=== PATIENT | female | born 1970 | race Caucasian/White ===

== ENCOUNTER 2017-06-07 12:03 | Day surgery (SDC) | payer SELFPAY, OTHER ==
[~2017-06-07 12:03] MED LIST: Bupivacaine 0.25% 10 ML SDV INJECT ONE; Bupivacaine 0.25% 10 ML SDV ONE; Octyl 2-Cyanoacrylate 1 Tube ONE; Scopolamine 1.5 MG Transdermal Patch TRDERM PRN; ceFAZolin 2 GM in Premix Bag 1 BAG IV ONE
[2017-06-07] MEDS ORDERED: Acetaminophen 1,000 MG in Premix Bag 1 BAG IV SCH (12:30)
[2017-06-07] MEDS: Lactated Ringers 1,000 ML IV SCH ×2 (12:54→18:12)
[2017-06-07] MEDS ORDERED: Ondansetron 4 MG/2 ML SDV ONE (12:56)
[2017-06-07] MEDS ORDERED: Rocuronium 10 MG/ML 10 ML Syringe ONE (12:56)
[2017-06-07] MEDS ORDERED: Lidocaine 2% 5 ML SDV ONE (12:56)
[2017-06-07] MEDS ORDERED: Propofol 200 MG/20 ML SDV ONE (12:56)
[2017-06-07] MEDS ORDERED: HYDROmorphone 2 MG/ML Syringe ONE (12:57)
[2017-06-07] MEDS ORDERED: fentaNYL 100 MCG/2 ML SDV ONE (12:57)
[2017-06-07] MEDS ORDERED: Dexamethasone 4 MG/ML 5 ML MDV ONE (12:57)
[2017-06-07] MEDS ORDERED: Midazolam 1 MG/ML 2 ML SDV ONE ×2 (12:57→13:20)
[2017-06-07] MEDS ORDERED: diphenhydrAMINE 50 MG/ML SDV ONE (12:57)
[2017-06-07] MEDS ORDERED: Midazolam 1 MG/ML 2 ML SDV IVPUSH ONE (13:16)
--- NOTE | 2017-06-07 13:16 | PCM.PREANE ---
Preanesthetic Assessment - Anesthesia/Transfusion/Family Hx Anesthesia History: Prior Anesthesia Without Reaction Other Type of Anesthesia Reaction Comment: DENIES ANY PROBLEMS WITH ANESTHESIA Family History of Anesthesia Reaction: No Transfusion History: Prior Transfusion Without Reaction Intubation History: Unknown - Review of Systems General: No Symptoms Pulmonary: No Symptoms Cardiovascular: No Symptoms Gastrointestinal: No Symptoms Neurological: No Symptoms Other: Reports: None - Physical Assessment O2 Sat by Pulse Oximetry: 96 Respiratory Rate: 16 Vital Signs: Last Vital Signs Temp 36.8 C 06/07/17 12:40 Pulse 61 06/07/17 12:40 Resp 16 06/07/17 12:40 BP 120/78 06/07/17 12:40 Pulse Ox 96 06/07/17 12:40 Height: 1.7 m Weight: 86.636 kg ASA Class: 2 Mental Status: Alert & Oriented x3 Airway Class: Mallampati = 2 Dentition: Reports: Normal Dentition Thyro-Mental Finger Breadths: 3 Mouth Opening Finger Breadths: 2 ROM/Head Extension: Full Lungs: Clear to Auscultation, Normal Respiratory Effort Cardiovascular: Regular Rate, Regular Rhythm - Allergies Allergies/Adverse Reactions: Allergies Allergy/AdvReac Type Severity Reaction Status Date / Time bacitracin Allergy Blisters Verified 06/02/17 11:54 [From Triple Antibiotic] bacitracin zinc Allergy Blisters Verified 06/02/17 11:54 [From Triple Antibiotic] neomycin sulfate Allergy Blisters Verified 06/02/17 11:54 [From Triple Antibiotic] polymyxin B Allergy Blisters Verified 06/02/17 11:54 [From Triple Antibiotic] polymyxin B sulfate Allergy Blisters Verified 06/02/17 11:54 [From Triple Antibiotic] - Blood Blood Available: No - Anesthesia Plan Pre-Op Medication Ordered: None - Acknowledgements Anesthesia Type Planned: General Anesthesia Pt an Appropriate Candidate for the Planned Anesthesia: Yes Alternatives and Risks of Anesthesia Discussed w Pt/Guardian: Yes Pt/Guardian Understands and Agrees with Anesthesia Plan: Yes PreAnesthesia Questionnaire HEENT History: Reports: None Cardiovascular History: Reports: None, Other (See Below) (h/o HTN and high cholesterol before loosing weight post gastric by-pass) Respiratory History: Reports: None Gastrointestinal History: Reports: Other (See Below) (s/p bowel obstruction due to abdminal gauze left during oophorectomy. 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: Musculoskeletal History: Reports: Fracture Other Musculoskeletal History: right collarbone Neurological History: Reports: None Psychiatric History: Reports: Anxiety, Depression Endocrine/Metabolic History: Reports: Hypothyroidism Hematologic History: Reports: Blood Transfusion(s) Immunologic History: Reports: None Oncologic (Cancer) History: Reports: None Dermatologic History: Reports: None - Infectious Disease History Infectious Disease History: Reports: Influenza - Past Surgical History Head Surgeries/Procedures: Reports: None HEENT Surgical History: Reports: Oral Surgery, Tonsillectomy Other HEENT Surgeries/Procedures: has 2 dental implants Cardiovascular Surgical History: Reports: None Respiratory Surgical History: Reports: None GI Surgical History: Reports: Bariatric Procedure, Other (See Below) Other GI Surgeries/Procedures: gastric sleeve October 20, 2014, laparotomy with splenectomy for removal of surgical sponge Female Surgical History: Reports: Section, Hysterectomy, Salpingo- Oophorectomy Endocrine Surgical History: Reports: None Neurological Surgical History: Reports: None Musculoskeletal Surgical History: Reports: Carpal Tunnel, Other (See Below) Other Musculoskeletal Surgeries/Procedures:: bilateral carpal tunnel, tendon repair of left elbow Oncologic Surgical History: Reports: None Dermatological Surgical History: Reports: None - SUBSTANCE USE Smoking Status *Q: Former Smoker Tobacco Use Within Last Twelve Months: No Second Hand Smoke Exposure: No Days Per Week of Alcohol Use: 0 Number of Drinks Per Day: 0 Total Drinks Per Week: 0 Recreational Drug Use History: No - HOME MEDS Home Medications: Home Meds Multivitamin [Multivitamins] 1 tab PO DAILY 05/19/14 [History] Citalopram Hydrobromide [Celexa] 20 mg PO DAILY 08/23/15 [History] Estradiol [Vivelle-Dot] 0.1 mg TRDERM ASDIRECTED 08/23/15 [History] Levothyroxine 125 mcg PO ACBREAKFAST 08/23/15 [History] Biotin 1,000 mcg PO DAILY 10/02/15 [History] - CURRENT (IN HOUSE) MEDS Current Meds: Current Medications Hydrocodone Bitart/Acetaminophen ([place] 325-5 Mg) 2 tab PO Q4H PRN PRN Reason: Pain Acetaminophen 1,000 mg/ Premix 100 mls @ 400 mls/hr IV .ONETIME SUSHIL Last Admin: 06/07/17 13:02 Dose: 400 mls/hr Lactated Ringer's (Ringers, Lactated) 1,000 mls @ 125 mls/hr IV ASDIRECTED REPLACED BY [facility] Last Admin: 06/07/17 12:54 Dose: 125 mls/hr Scopolamine (Transderm-Scop) 1.5 mg TRDERM .ONCE PRN PRN Reason: Post Op Nausea Last Admin: 06/07/17 13:02 Dose: 1.5 mg Discontinued Medications Bupivacaine HCl (Sensorcaine-Mpf 0.25%) 10 ml INJECT ONETIME ONE Stop: 06/07/17 08:05 Bupivacaine HCl (Sensorcaine-Mpf 0.25%) Confirm Administered Dose 40 ml .ROUTE .STK-MED ONE Stop: 06/07/17 11:43 Dexamethasone (Dexamethasone) Confirm Administered Dose 20 mg .ROUTE .STK-MED ONE Stop: 06/07/17 12:58 Diphenhydramine HCl (Benadryl) Confirm Administered Dose 50 mg .ROUTE .STK-MED ONE Stop: 06/07/17 12:58 Fentanyl (Sublimaze) Confirm Administered Dose 100 mcg .ROUTE .STK-MED ONE Stop: 06/07/17 12:58 Hydromorphone HCl (Dilaudid) Confirm Administered Dose 2 mg .ROUTE .STK-MED ONE Stop: 06/07/17 12:58 Cefazolin Sodium/Dextrose 2 gm (/ Premix) 50 mls @ 100 mls/hr IV ONETIME ONE Stop: 06/07/17 08:33 Lidocaine (Xylocaine-Mpf 2%) Confirm Administered Dose 5 ml .ROUTE .STK-MED ONE Stop: 06/07/17 12:57 Midazolam HCl (Versed 1 Mg/Ml) Confirm Administered Dose 2 mg .ROUTE .STK-MED ONE Stop: 06/07/17 12:58 Octyl Cyanoacrylate (Dermabond Advance) Confirm Administered Dose 1 applic .ROUTE .STK-MED ONE Stop: 06/07/17 11:44 Ondansetron HCl (Zofran) Confirm Administered Dose 4 mg .ROUTE .STK-MED ONE Stop: 06/07/17 12:57 Propofol (Diprivan 20 Ml) Confirm Administered Dose 200 mg .ROUTE .STK-MED ONE Stop: 06/07/17 12:57 Rocuronium [place] (Zemuron) Confirm Administered Dose 100 mg .ROUTE .[facility] Stop: 06/07/17 12:57
[2017-06-07] MEDS ORDERED: ceFAZolin 1 GM Vial ONE ×2 (14:53→14:57)
[2017-06-07] MEDS ORDERED: Neostigmine Methylsulfate 1 MG/ML 5 ML Syringe ONE (15:55)
[2017-06-07] MEDS ORDERED: fentaNYL 100 MCG/2 ML SDV IVPUSH PRN (16:14)
[2017-06-07] MEDS ORDERED: Bupivacaine 0.25% 10 ML SDV ONE (17:19)
[2017-06-07] MEDS ORDERED: Ondansetron 4 MG Tab.DIS PO PRN (17:34)
[2017-06-07] MEDS ORDERED: diphenhydrAMINE 25 MG Cap PO PRN (17:34)
[2017-06-07] MEDS ORDERED: Ondansetron 4 MG/2 ML SDV IVPUSH PRN (17:34)
[2017-06-07] MEDS ORDERED: Ibuprofen 400 MG Tab PO PRN (17:34)
--- NOTE | 2017-06-07 17:37 | PCM.OPNOTE ---
- General Post-Op/Procedure Note Date of Surgery/Procedure: 06/07/17 Operative Procedure(s): abdonimoplasty Pre Op Diagnosis: excess abdominal skin Post-Op Diagnosis: Same Anesthesia Technique: General ET Tube, Local Primary Surgeon: Ana Ashton Conference Manager: Kesha Crenshaw Complications: None Condition: Good
--- NOTE | 2017-06-07 17:42 | PCM.POSTAN ---
POST ANESTHESIA ASSESSMENT - MENTAL STATUS Mental Status: Alert, Oriented - VITAL SIGNS Pulse Rate: 117 SaO2: 95 Resp Rate: 16 Blood Pressure: 131/75 - RESPIRATORY Respiratory Status: Respiratory Rate WNL, Airway Patent, O2 Saturation Stable - CARDIOVASCULAR CV Status: Pulse Rate WNL, Blood Pressure Stable, Other (hr in 110's bp stable no c/o pain) - GASTROINTESTINAL GI Status: No Symptoms - PAIN Pain Score: 2 - POST OP HYDRATION Hydration Status: Adequate & Stable (iv fluids)
[2017-06-07] MEDS: Cephalexin 500 MG Cap PO SCH (18:20)
[2017-06-07] MEDS: Acetaminophen/HYDROcodone 325-5 MG Tab PO PRN ×2 (18:20→22:50)
[2017-06-08] MEDS: Lactated Ringers 1,000 ML IV SCH (00:08)
[2017-06-08] MEDS: Cephalexin 500 MG Cap PO SCH ×4 (00:24→17:29)
[2017-06-08] MEDS: Acetaminophen/HYDROcodone 325-5 MG Tab PO PRN ×3 (05:54→17:32)
[2017-06-08] MEDS ORDERED: Sodium Chloride 0.9% 2.5 ML Syringe FLUSH PRN (08:01)
[2017-06-08] MEDS ORDERED: Sodium Chloride 0.9% 10 ML Syringe FLUSH PRN (08:01)
--- NOTE | 2017-06-08 08:48 | PCM.SN ---
- Free Text/Narrative Note: Feeling well POD1 am. Minor soreness but overall doing great. would like to go home later today. 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 Pain controlled and ambulating. Will saline lock IV. TH
--- NOTE | 2017-06-08 13:54 | OR ---
SURGEON: JUDY BENDER MD DATE OF PROCEDURE: 06/07/2017 PREOPERATIVE DIAGNOSIS: Excess abdominal skin with scarring. POSTOPERATIVE DIAGNOSIS: Excess abdominal skin with scarring. PROCEDURE: Abdominoplasty. GENETICS NURSE: WASHINGTON Hernandez. ANESTHESIA: General ET tube with local. Indications for perinatal breastfeeding assistant is retraction and assistance with closure of the abdominal wound. INDICATIONS: Ms. Cowart is a 46-year-old female who was seen today in evaluation for lower abdominal excess skin. Risks and benefits of abdominoplasty were discussed with her and she was in agreement to proceed. Risks were including, but not limited to, bleeding, infection, damage to underlying or overlying structures, possible need for future interventions, and possible scarring. PROCEDURE IN DETAIL: After informed consent was obtained and placed on the chart, the patient was brought to the operating theater and laid in supine position. After adequate general anesthetic was obtained, the area was prepped and draped and a time-out was completed to confirm side and site. Attention was then paid to the lower abdominal transverse incision as marked just slightly above the umbilicus to the lower abdomen for skin excision. The lower incision was made 1st. Dissection was carried down to the abdominal wall and then elevated up to the umbilicus. The umbilicus was outlined and dissected free and left attached to the abdominal wall. Once adequately dissected here, dissection was then continued for the skin flap up to the xiphoid process and tapered laterally. Once adequately dissected, meticulous hemostasis was obtained and the area was copiously irrigated. Once adequately irrigated, attention was then paid to plication stitches in the midline using 0 Ethibond sutures to tighten the abdominal wall. Once this was completed, all the way down from the xiphoid process to the pubic bone, the pubic bone was then used to anchor the superior mons skin up to allow better contour. Once this was completed, the wounds again were irrigated and then the patient was sat up 30 degrees and skin flap was redraped. Once redraped, minor adjustments were made for the excision and attention was then paid to transection of the excess abdominal skin. Once this was completed, 2-0 PDS sutures were then used to plicate the abdominal wall to the superior skin flap all the way down just at the lateral rectus muscle. Once this was completed bilaterally, the skin flap was again redraped and stapled in place appropriately with midline markings reapproximated. Once they were stapled in place, deep 2-0 PDS STRATAFIX sutures were used to secure the fascia, 3-0 Monocryl STRATAFIX sutures for the dermis, and 4-0 Monocryl STRATAFIX sutures for the skin. The two size 7 VICK drains were placed prior to closure and sutured in place to the lateral aspect of the incision using 3-0 Prolene. Attention was then paid to isolation of the umbilicus at the marked position and dissection was carried through the skin scar and subcutaneous tissues. The umbilicus was easily brought through the old vertical scar and sutured in place using deep 4-0 Monocryl sutures and Dermabond for the skin. The patient tolerated this well and this was dressed with Tegaderm. The lower incision was dressed with Steri-Strips, fluffs, tape, and an abdominal compression binder from [facility]. Once adequately dressed, the patient was transferred to PACU in stable condition. She tolerated this well and all counts and needles were correct at the end of the case and given the patient's previous issue checked 2 additional times. 0.25% Marcaine and Exparel were both used for anesthesia. FOLLOWUP INSTRUCTIONS: The patient will be maintained in the hospital overnight for observation, likely discharge tomorrow. PRIMARY SURGEON: SECONDARY SURGEON: REASON GENETICS NURSE WAS NECESSARY: ROLE OF GENETICS NURSE: DEYANIRA AUGUSTINE /[id number]
[2017-06-08 17:00] VITALS: BP 118/76
--- NOTE | 2017-06-08 17:06 | PCM.SN ---
- Free Text/Narrative Note: excellent progress and home today. All questions answered and d/c instructions provided.
== END 2017-06-08 17:40 | disposition home or self-care (01) ==
LOC: MW.SDS 12:03 → MW.MS 18:07 → MW.SDS 06-08 17:40
PROVIDERS: ATTEND Plastic Surgery
DX: Z41.1 Encounter for cosmetic surgery (principal); L98.7 Excessive and redundant skin and subcutaneous tissue; L90.5 Scar conditions and fibrosis of skin; F41.9 Anxiety disorder, unspecified; F32.9 Major depressive disorder, single episode, unspecified; E03.9 Hypothyroidism, unspecified; Z87.891 Personal history of nicotine dependence; Z79.899 Other long term (current) drug therapy; Z88.1 Allergy status to other antibiotic agents; Z98.84 Bariatric surgery status; Z90.81 Acquired absence of spleen; Z90.710 Acquired absence of both cervix and uterus; Z98.890 Other specified postprocedural states
CPT/HCPCS: 15830; 15847; A9270; J0690; J1100; J1170; J1200; J2250; J2405; J3010; J7120; 00802; J2704

== ENCOUNTER 2019-03-04 09:18 | Day surgery (SDC) | payer OTHER ==
[~2019-03-04 09:18] MED LIST changes: -Bupivacaine 0.25% 10 ML SDV INJECT ONE; -Bupivacaine 0.25% 10 ML SDV ONE; +Lactated Ringers 1,000 ML IV SCH; -Octyl 2-Cyanoacrylate 1 Tube ONE; -Scopolamine 1.5 MG Transdermal Patch TRDERM PRN
[2019-03-04] MEDS ORDERED: Lidocaine 1% 20 ML MDV ONE (09:46)
[2019-03-04] MEDS ORDERED: Bupivacaine 0.5% 30 ML SDV ONE (09:46)
[2019-03-04] MEDS ORDERED: fentaNYL 250 MCG/5 ML SDV ONE (09:51)
[2019-03-04] MEDS ORDERED: Lidocaine 2% 5 ML SDV ONE (09:51)
--- NOTE | 2019-03-04 09:51 | PCM.PREANE ---
Preanesthetic Assessment - Anesthesia/Transfusion/Family Hx Anesthesia History: Prior Anesthesia Without Reaction Other Type of Anesthesia Reaction Comment: DENIES ANY PROBLEMS WITH ANESTHESIA Family History of Anesthesia Reaction: No Transfusion History: Prior Transfusion Without Reaction Intubation History: Unknown - Review of Systems General: No Symptoms Pulmonary: No Symptoms Cardiovascular: No Symptoms Gastrointestinal: No Symptoms Neurological: No Symptoms Other: Reports: None ( ) - Physical Assessment Vital Signs: Last Vital Signs Temp 36.8 C 03/04/19 09:25 Pulse 71 03/04/19 09:25 Resp 16 03/04/19 09:25 BP 118/75 03/04/19 09:25 Pulse Ox 96 03/04/19 09:25 Height: 5 ft 6 in Weight: 97.976 kg ASA Class: 2 Mental Status: Alert & Oriented x3 Airway Class: Mallampati = 2 Dentition: Reports: Normal Dentition Thyro-Mental Finger Breadths: 3 Mouth Opening Finger Breadths: 2 (small mouth) ROM/Head Extension: Full Lungs: Clear to Auscultation, Normal Respiratory Effort Cardiovascular: Regular Rate, Regular Rhythm - Allergies Allergies/Adverse Reactions: Allergies Allergy/AdvReac Type Severity Reaction Status Date / Time bacitracin Allergy Blisters Verified 06/02/17 11:54 [From Triple Antibiotic] bacitracin zinc Allergy Blisters Verified 06/02/17 11:54 [From Triple Antibiotic] neomycin sulfate Allergy Blisters Verified 06/02/17 11:54 [From Triple Antibiotic] polymyxin B Allergy Blisters Verified 06/02/17 11:54 [From Triple Antibiotic] polymyxin B sulfate Allergy Blisters Verified 06/02/17 11:54 [From Triple Antibiotic] - Blood Blood Available: No - Anesthesia Plan Pre-Op Medication Ordered: None - Acknowledgements Anesthesia Type Planned: General Anesthesia Pt an Appropriate Candidate for the Planned Anesthesia: Yes Alternatives and Risks of Anesthesia Discussed w Pt/Guardian: Yes Pt/Guardian Understands and Agrees with Anesthesia Plan: Yes PreAnesthesia Questionnaire HEENT History: Reports: None Cardiovascular History: Reports: High Cholesterol Respiratory History: Reports: None Gastrointestinal History: Reports: None Genitourinary History: Reports: None 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: Musculoskeletal History: Reports: Fracture Other Musculoskeletal History: right collarbone Neurological History: Reports: None Psychiatric History: Reports: Anxiety, Depression Endocrine/Metabolic History: Reports: Hypothyroidism, Obesity/BMI 30+ Hematologic History: Reports: Blood Transfusion(s) Immunologic History: Reports: None Oncologic (Cancer) History: Reports: None Dermatologic History: Reports: None - Infectious Disease History Infectious Disease History: Reports: Influenza - Past Surgical History Head Surgeries/Procedures: Reports: None HEENT Surgical History: Reports: Oral Surgery, Tonsillectomy Other HEENT Surgeries/Procedures: has 2 dental implants Cardiovascular Surgical History: Reports: None Respiratory Surgical History: Reports: None GI Surgical History: Reports: Bariatric Procedure, Other (See Below) Other GI Surgeries/Procedures: gastric sleeve October 20, 2014, laparotomy with splenectomy for removal of surgical sponge Female Surgical History: Reports: Section, Hysterectomy, Salpingo- Oophorectomy Endocrine Surgical History: Reports: None Neurological Surgical History: Reports: None Musculoskeletal Surgical History: Reports: Carpal Tunnel, Other (See Below) Other Musculoskeletal Surgeries/Procedures:: bilateral carpal tunnel, tendon repair of left elbow Oncologic Surgical History: Reports: None Dermatological Surgical History: Reports: None - SUBSTANCE USE Smoking Status *Q: Former Smoker Tobacco Use Within Last Twelve Months: No Recreational Drug Use History: No - HOME MEDS Home Medications: Home Meds Multivitamin [Multivitamins] 1 tab PO DAILY 05/19/14 [History] Citalopram Hydrobromide [Celexa] 30 mg PO DAILY 08/23/15 [History] Estradiol [Vivelle-Dot] 0.1 mg TRDERM ASDIRECTED 08/23/15 [History] Levothyroxine 1.5 tab PO ACBREAKFAST 08/23/15 [History] Biotin 1,000 mcg PO DAILY 10/02/15 [History] LORazepam [Ativan] 1 tab PO ASDIRECTED PRN 02/27/19 [History] - CURRENT (IN HOUSE) MEDS Current Meds: Current Medications Lactated Ringer's (Ringers, Lactated) 1,000 mls @ 125 mls/hr IV ASDIRECTED SUSHIL Discontinued Medications Cefazolin Sodium/Dextrose 2 gm (/ Premix) 50 mls @ 100 mls/hr IV ONETIME ONE Stop: 03/04/19 06:29
[2019-03-04] MEDS ORDERED: Midazolam 1 MG/ML 2 ML SDV ONE (09:52)
[2019-03-04] MEDS ORDERED: Propofol 200 MG/20 ML SDV ONE (09:53)
[2019-03-04] MEDS ORDERED: Sodium Chloride 0.9% 20 ML ONE (11:53)
[2019-03-04] MEDS ORDERED: ceFAZolin 1 GM Vial ONE (11:53)
[2019-03-04] MEDS ORDERED: Ketorolac 30 MG/ML SDV ONE (12:03)
[2019-03-04] MEDS ORDERED: Ondansetron 4 MG/2 ML SDV ONE (12:03)
--- NOTE | 2019-03-04 13:33 | PN ---
PLANNED PROCEDURE: 1. Exostectomy, first metatarsophalangeal joint, left foot. 2. Exostectomy, first metatarsophalangeal joint, right foot. MEDICAL HISTORY: Preoperative clearance was performed by Dr. Tonio Mims. ALLERGIES: Triple Antibiotic ointment. No other known drug allergies. MEDICATIONS: 1. Celexa 20 mg tablet 1.5 tabs every day orally. 2. Lorazepam 0.5 mg 1 tab 3 times a day by oral route. 3. Synthroid 125 mcg tablet 1-1/2 tabs daily by oral route. 4. Vivelle-Dot 0.1 mg per 24-hour transdermal patch, apply 1 patch twice a week by transdermal route. 5. Acetonic supplement once a day, which contain several vitamins and supplements. Lab values were all unremarkable and within normal limits. Chest x-ray was unremarkable. No acute cardiopulmonary process. EKG was normal with sinus rhythm. The patient is cleared for surgery by Dr. Tonio Mims. All of the patient's questions have been asked and answered. No guarantees have been expressed or implied. Risks and benefits of surgery have been discussed with the patient. Risks including postoperative infection, prolonged healing, and inadequate relief of painful symptoms. ELSY / BRADLEYL /[id number] MTDWaylon
--- NOTE | 2019-03-04 14:30 | PCM.OPNOTE ---
- General Post-Op/Procedure Note Date of Surgery/Procedure: 03/04/19 Operative Procedure(s): 1. exostectomy first metatarsal phalangeal joint right foot. 1. exostectomy first metatarsal phalangeal joint left foot. 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 hallux rigidus and exostosis left first metatarsal phalangeal joint Post-Op Diagnosis: hallux rigidus and exostosis right first metatarsal phalangeal joint. hallux rigidus and exostosis left first metatarsal phalangeal joint Anesthesia Technique: General LMA Primary Surgeon: Jorge A Burrell Pathology: none Complications: none Condition: Good Free Text/Narrative:: materials: 3-0 vicryl, 4-0 vicryl, 4-0 Stratafix injectables: 8 ml 0.5% marcaine plain to right foot and 8 ml 0.5% marcaine plain to left foot
[2019-03-04] MEDS: fentaNYL 100 MCG/2 ML SDV IVPUSH PRN ×2 (14:33→14:46)
[2019-03-04] MEDS ORDERED: fentaNYL 100 MCG/2 ML SDV IVPUSH PRN (15:16)
--- NOTE | 2019-03-04 15:16 | PCM.POSTAN ---
POST ANESTHESIA ASSESSMENT - MENTAL STATUS Mental Status: Alert, Oriented - VITAL SIGNS Vital Signs: Last Vital Signs Temp 37 C 03/04/19 14:22 Pulse 104 H 03/04/19 14:57 Resp 12 03/04/19 14:57 BP 131/80 03/04/19 14:57 Pulse Ox 95 03/04/19 14:57 - RESPIRATORY Respiratory Status: Respiratory Rate WNL, Airway Patent, O2 Saturation Stable - CARDIOVASCULAR CV Status: Pulse Rate WNL, Blood Pressure Stable - GASTROINTESTINAL GI Status: No Symptoms - PAIN Pain Score: 4 - POST OP HYDRATION Hydration Status: Adequate & Stable - OBSERVATIONS Free Text/Narrative:: no anesthesia problems
[2019-03-04] MEDS ORDERED: Acetaminophen/HYDROcodone 325-5 MG Tab PO ONE (15:17)
[2019-03-04 16:00] VITALS: BP 120/77
--- NOTE | 2019-03-04 16:28 | PCM48HPAN ---
Post Anesthesia Note - EVALUATION WITHIN 48HRS OF ANESTHETIC Vital Signs in Normal Range: Yes Patient Participated in Evaluation: Yes Respiratory Function Stable: Yes Airway Patent: Yes Cardiovascular Function Stable: Yes Hydration Status Stable: Yes Pain Control Satisfactory: Yes Nausea and Vomiting Control Satisfactory: Yes Mental Status Recovered: Yes Vital Signs: Last Vital Signs Temp 37.2 C 03/04/19 15:05 Pulse 101 H 03/04/19 15:50 Resp 16 03/04/19 15:50 BP 120/77 03/04/19 15:50 Pulse Ox 95 03/04/19 15:50
--- NOTE | 2019-03-05 04:00 | OR ---
SURGEON: Jorge A Burrell DPM DATE OF PROCEDURE: 03/04/2019 PRIMARY SURGEON: Jorge A Burrell DPM. The patient is a 48-year-old female. PREOPERATIVE DIAGNOSIS: Exostosis, first metatarsophalangeal joint, left foot and exostosis, first metatarsophalangeal joint, right foot. POSTOPERATIVE DIAGNOSIS: Exostosis, first metatarsophalangeal joint, left foot and exostosis, first metatarsophalangeal joint, right foot. PROCEDURE: Exostectomy, first metatarsophalangeal joint, right foot and exostectomy, first metatarsophalangeal joint, left foot. ANESTHESIA: General LMA. HEMOSTASIS: Above-ankle pneumatic tourniquet inflated to a pressure of 250 mmHg after an Esmarch bandage exsanguination of each lower extremity. ESTIMATED BLOOD LOSS: 10 mL total. PATHOLOGY: None. CONDITION: The patient tolerated the procedure and anesthesia well with no complications noted, and a prompt hyperemic response noted to the digits of the right foot and the left foot following deflation of the respective tourniquet. MATERIALS: 3-0 Vicryl, 4-0 Vicryl, 4-0 Stratafix. INJECTABLES: A total of 16 mL of 0.5% Marcaine plain divided equally to 8 mL for each foot was injected at the conclusion of the procedure. JUSTIFICATION FOR THE PROCEDURE: The patient has longstanding pain in the area of the first metatarsophalangeal joint of both feet. The patient has tried and failed conservative measures and was fitted with custom-made orthotic inserts; however, due to the pain level, even the inserts were causing additional pain due to the thickness, including a rigid Aponte's extension to try to address this problem, and after surgery, the patient will be re-evaluated with these inserts. X-rays have shown that there are significant spurs and/or loose bodies present in both first metatarsophalangeal joints, particularly in the left, and the patient in addition to the exostosis problem has very limited dorsiflexion constituting hallux rigidus to the first metatarsophalangeal joints of both feet. The patient has elected for surgery today and understands that further surgery up to and including fusion of the first metatarsophalangeal joint may ultimately be required if adequate alleviating of symptoms is not achieved with today's surgery and conservative measures. PROCEDURES IN DETAIL: Procedure #1: Exostectomy, first metatarsophalangeal joint, right foot: The patient was brought to the operating room and placed on the operating table in supine position, at which time aseptic scrub and drape was performed about the patient's bilateral lower extremities. Preoperative x-ray was taken of the right foot, and incision was planned and made over the central aspect of the dorsal first metatarsophalangeal joint of the right foot after the inflation of the tourniquet to a pressure of 250 mmHg. The incision was deepened through the superficial and deep layers of the skin and blunt dissection was utilized where possible using a small curved hemostat to undermine the subcutaneous layers. The extensor hallucis longus tendon was identified and retracted out of the way. Small bleeders were cauterized as necessary. The exostosis was readily identified at the head of the first metatarsal. The exostosis did not involve the right great toe proximal phalanx. The exostosis was then removed primarily with bone rongeur, and this was followed with a power rasp to remove the remainder of the exostosis and to smooth and contour the head of the first metatarsal on the dorsomedial, dorsal, and dorsolateral aspects of the first metatarsal head. 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 The area was flushed with normal sterile saline, reinspected and x-rayed, and a bit of remaining exostosis was then removed. There was some minimal improvement noted to the dorsiflexion of the first metatarsophalangeal joint, and closure then commenced with a layered closure of the deep layer closed with 3-0 Vicryl and 4-0 Vicryl suture, and the subcutaneous layer with 4-0 Vicryl suture, and the superficial skin with Stratafix suture. Attention was then directed to the tourniquet, which was deflated during the closure of the skin, and attention was then directed to the patient's left foot. Preoperative x-rays were then taken. Esmarch bandage exsanguination was performed of the left foot. Procedure #2 began, which was exostectomy, first metatarsophalangeal joint, left foot, using the planned incision over the dorsal aspect of the first metatarsophalangeal joint of the left foot. Incision was made with #15 blade on a #3 handle through the skin layer and blunt dissection was performed with a small curved hemostat with care being taken to preserve the extensor tendon. Small bleeders were cauterized as necessary. The large exostosis was readily identified over the head of the first metatarsal, minimal exostosis was present at the base of the proximal phalanx, and both were removed with a combination of bone rongeur and power rasp to smooth all remaining sharp areas and to contour the dorsomedial, dorsal, and dorsolateral aspects of the first metatarsal head. Again, on the left foot, stage III chondromalacia was noted, and after repeating saline flush and inspecting and removing small amounts of additional bone as noted to be necessary, the area was flushed one final time. There was again minimally increased dorsiflexion noted following the procedure and the area was dried in preparation for layered soft tissue closure. Final x-rays were taken, and closure was performed with 3-0 Vicryl suture for the deep layer, 4-0 Vicryl suture for the subcutaneous and the superficial skin was reapproximated with 4-0 Stratafix suture. The tourniquet was deflated during the closure of the skin, and at this time, 8 mL of 0.5% Marcaine plain was infiltrated about the surgical site on the right foot and then another 8 mL of 0.5% Marcaine plain was infiltrated about the surgical site on the left foot. Xeroform gauze soaked in Betadine was placed over the surgical sites of both feet, covered with fluff gauze, Kerlix roll, and Karlo bandage to secure the dressing. The patient had a prompt hyperemic response upon deflation of the tourniquets in both feet. This was noted to all digits of both feet. The patient was then transported from the operating room to the recovery room, having tolerated the procedure and the anesthesia well, with vital signs stable and vascular status intact. The patient was fitted with postoperative shoes on both feet in the recovery room. Postoperative instructions have been given in writing for adequate analgesic care and minimal weightbearing. The patient is to follow up with my office within the next 2 to 3 days and has my phone number if she should have any concerns at any time. ELSY / DAVIDE /[id number]
== END 2019-03-04 16:26 | disposition home or self-care (01) ==
LOC: MW.SDS 09:18
PROVIDERS: ATTEND Podiatrist Foot & Ankle Surgery
DX: M77.52 Other enthesopathy of left foot and ankle (principal); M77.51 Other enthesopathy of right foot and ankle; M94.271 Chondromalacia, right ankle and joints of right foot; M94.272 Chondromalacia, left ankle and joints of left foot; E03.9 Hypothyroidism, unspecified; E66.9 Obesity, unspecified; J30.2 Other seasonal allergic rhinitis; E78.2 Mixed hyperlipidemia; F41.9 Anxiety disorder, unspecified; F32.9 Major depressive disorder, single episode, unspecified; Z87.891 Personal history of nicotine dependence; Z88.1 Allergy status to other antibiotic agents; Z68.34 Body mass index [BMI] 34.0-34.9, adult
CPT/HCPCS: 28104; J0690; J1885; J2001; J2250; J2405; J2704; J3010; J3490; J7120; 01480